=== PATIENT | male | born 1950 | race Caucasian/White ===

== ENCOUNTER 2021-12-22 15:45 | Outpatient (CLI) | payer OTHER | END 2021-12-22 15:48 | disposition home or self-care (01) | LOC: RAD 15:45 | PROVIDERS: ATTEND Ophthalmology | DX: R07.89 Other chest pain (principal) ==

== ENCOUNTER 2022-09-01 07:38 | Outpatient (CLI) | payer OTHER | END 2022-09-01 07:50 | disposition home or self-care (01) | LOC: MRI 07:38 | PROVIDERS: ATTEND Urology | DX: R31.0 Gross hematuria (principal) | CPT/HCPCS: 72197; 74183; Q9965; 72195 ==

== ENCOUNTER 2024-01-22 12:25 | Outpatient (CLI) | payer OTHER ==
[2024-01-22 13:08] LABS: PH,URINE 5.5 (5.0-8.0); URINE APPEARANCE Cloudy; URINE BILIRRUBIN Negative (NEGATIVE); URINE BLOOD Negative; URINE COLOR Yellow; URINE GLUCOSE Negative (NEGATIVE); URINE LEUKOCYTE Negative; URINE NITRATE Negative; URINE PROTEIN Negative (NEGATIVE); URINE UROBILINOGEN 0.2 E.U./dl
[2024-01-22 13:12] LABS: MEAN CELL VOLUME 92.2 fL (80.0-100.00); MEAN CORPUSCULAR HEMOGLOBIN 30.7 pg (27.00-32.0); MEAN CORPUSCULAR HGB CONC 33.3 g/dl (32.0-36.0); PLATELET COUNT 208 K/uL (150-450); RED BLOOD COUNT 4.56 M/uL (4.00-6.00); RED CELL DISTRIBUTION WIDTH 14.6 % (11.5-14.5)
[2024-01-22 13:32] LABS: ALBUMIN 3.7 gm/dL (3.4-5.0); BILIRUBIN TOTAL 1.26 mg/dL (0.3-1.2); CREATININE SERUM 0.86 mg/dL (0.70-1.30); GFR 87.17; GLOBULINA 2.6 G/DL (2.4-3.5); POTASSIUM 5.03 mEq/L (3.5-5.1); TOTAL PROTEIN 6.3 gm/dL (6.4-8.2)
[2024-01-22 13:51] LABS: URINE EPITHELIAL CELLS 0.9 uL (0.0-38.8); URINE RBC 1.2 uL (0.0-20.8)
[2024-01-22 13:52] LABS: INR 1.01; PARTIAL THROMBOPLASTIN TIME 29.4 SECONDS (22.0-34.0)
[2024-01-22 14:27] LABS: PROTHROMBIN TIME 10.6 SECONDS (9.0-11.5)
== END 2024-01-22 12:26 | disposition home or self-care (01) ==
LOC: RAD 12:25
DX: J44.0 Chronic obstructive pulmonary disease with (acute) lower respiratory infection (principal)

== ENCOUNTER 2024-05-06 12:11 | Outpatient (CLI) | payer OTHER | END 2024-05-06 12:12 | disposition home or self-care (01) | LOC: TOM 12:11 | DX: N28.1 Cyst of kidney, acquired (principal) ==

== ENCOUNTER → 2024-05-06 13:06 | Outpatient (CLI) | payer OTHER ==
[2024-05-06 13:45] LABS: HEMATOCRIT 41.6 % (39.0-48.0); MEAN CELL VOLUME 92.3 fL (80.0-100.00); MEAN CORPUSCULAR HGB CONC 33.6 g/dl (32.0-36.0); PH,URINE 6.5 (5.0-8.0); PLATELET COUNT 230 K/uL (150-450); RED BLOOD COUNT 4.51 M/uL (4.00-6.00); RED CELL DISTRIBUTION WIDTH 14.1 % (11.5-14.5); URINE APPEARANCE Clear; URINE BILIRRUBIN Negative (NEGATIVE); URINE BLOOD Negative; URINE COLOR Yellow; URINE GLUCOSE Negative (NEGATIVE); URINE LEUKOCYTE Negative; URINE NITRATE Negative; URINE PROTEIN Negative (NEGATIVE); URINE UROBILINOGEN 0.2 E.U./dl; URINE WBC 6.6 uL (0.0-23.2)
[2024-05-06 13:53] LABS: URINE BACTERIA 1.2 uL (0.0-1933); URINE EPITHELIAL CELLS 0.3 uL (0.0-38.8); URINE RBC 1.8 uL (0.0-20.8)
[2024-05-06 14:07] LABS: CREATININE URINE RANDOM 97.8 MG/DL (30-125)
[2024-05-06 14:20] LABS: ALBUMIN 3.8 gm/dL (3.4-5.0); BILIRUBIN TOTAL 1.01 mg/dL (0.3-1.2); CALCIUM 9.7 mg/dL (8.5-10.1); GFR 73.24; POTASSIUM 5.05 mEq/L (3.5-5.1); TOTAL PROTEIN 6.8 gm/dL (6.4-8.2)
== END | disposition home or self-care (01) ==
LOC: LAB 13:06
PROVIDERS: ATTEND Internal Medicine Nephrology
DX: N18.2 Chronic kidney disease, stage 2 (mild) (principal)

== ENCOUNTER 2024-07-15 07:08 | Outpatient (CLI) | payer OTHER | END 2024-07-15 07:13 | disposition home or self-care (01) | LOC: NUCLEAR 07:08 | PROVIDERS: ATTEND Internal Medicine Cardiovascular Disease | DX: I20.89 Other forms of angina pectoris (principal) | CPT/HCPCS: 78452; 93017; A9500 ==

== ENCOUNTER 2024-07-25 15:42 | Outpatient (CLI) | payer OTHER | END 2024-07-25 15:47 | disposition home or self-care (01) | LOC: RAD 15:42 | DX: M54.2 Cervicalgia (principal) ==

== ENCOUNTER 2025-05-06 12:49 | Outpatient (CLI) | payer OTHER | END 2025-05-06 12:55 | disposition home or self-care (01) | LOC: TOM 12:49 | PROVIDERS: ATTEND Internal Medicine Pulmonary Disease | DX: R91.8 Other nonspecific abnormal finding of lung field (principal) ==

== ENCOUNTER 2025-05-15 09:13 | Outpatient (CLI) | payer OTHER | END 2025-05-15 09:22 | disposition home or self-care (01) | LOC: SONOGRAMA 09:13 | PROVIDERS: ATTEND Internal Medicine Pulmonary Disease | DX: N28.1 Cyst of kidney, acquired (principal); R91.1 Solitary pulmonary nodule; Z87.438 Personal history of other diseases of male genital organs; K80.20 Calculus of gallbladder without cholecystitis without obstruction; J45.40 Moderate persistent asthma, uncomplicated; E78.00 Pure hypercholesterolemia, unspecified ==